=== PATIENT | female | born 1955 | race African-American/Black ===

== ENCOUNTER → 2016-05-05 | Outpatient (CLI) | payer BC | LOC: RAD 09:13 | PROVIDERS: ATTEND Physician Assistant | DX: M75.31 Calcific tendinitis of right shoulder (principal) ==

== ENCOUNTER 2016-06-21 05:24 | Day surgery (SDC) | payer BC, OTHER ==
[2016-06-16 09:35] LABS: ABSOLUTE EOSINOPHILS # (AUTO) 0.2 10^3/uL (0.0-0.6); ABSOLUTE LYMPHOCYTES (AUTO) 2.5 10^3/uL (0.5-4.7); ABSOLUTE MONOCYTES (AUTO) 0.4 10^3/uL (0.1-1.4); ABSOLUTE NEUT (AUTO) 2.7 10^3/uL (1.7-8.2); BASOPHILS % (AUTO) 0.9 % (0-2); HEMATOCRIT 37.8 % (36.0-47.0); HEMOGLOBIN 12.6 g/dL (12.0-15.5); LYMPHOCYTES % (AUTO) 43.2 % (13-45); MEAN CORPUSCULAR HGB CONC 33.3 g/dL (32.0-36.0); MEAN CORPUSCULAR VOLUME 84 fl (80-97); MONOCYTES % (AUTO) 6.2 % (3-13); RED CELL DISTRIBUTION WIDTH 13.7 % (11.5-14.0); SEGMENTED NEUTROPHILS % (AUTO) 46.7 % (42-78); WHITE BLOOD COUNT 5.7 10^3/uL (4.0-10.5)
[2016-06-16 09:59] LABS: ANION GAP 10 (5-19); BLOOD UREA NITROGEN 12 mg/dL (7-20); CALCIUM 9.9 mg/dL (8.4-10.2); CARBON DIOXIDE 27 mmol/L (22-30); CHLORIDE 103 mmol/L (98-107); CREATININE RESULT 0.87 mg/dL (0.52-1.25); GLUCOSE 262 mg/dL (75-110); POTASSIUM 4.3 mmol/L (3.6-5.0); SODIUM 140.3 mmol/L (137-145)
--- NOTE | 2016-06-16 12:36 | EKG REPORT ---
SEVERITY:- ABNORMAL ECG - SINUS RHYTHM BORDERLINE LEFT AXIS DEVIATION ANTERIOR INFARCT, AGE INDETERMINATE : Confirmed by: Issa Barrett 16-Jun-2016 12:35:45
[~2016-06-21 05:24] MED LIST: CIPROFLOXACIN 400 MG/D5W RTU 400 MG/200 ML RTUPB IV PRN; LACTATED RINGERS 1000 ML IV PRN; LIDOCAINE 0.5% INJ-PF (5 MG/ML) 50 ML SDV SUBCUT PRN
[2016-06-21] MEDS ORDERED: MICROFIBRILLAR COLLAGEN 1 GM PACK ONE (06:38)
[2016-06-21] MEDS ORDERED: LIDOCAINE 1%/EPINEPHRINE INJ 20 ML VIAL ONE (06:38)
[2016-06-21] MEDS ORDERED: MIDAZOLAM 2 MG/2 ML INJ ONE (07:05)
[2016-06-21] MEDS ORDERED: KETAMINE HCL INJ 500 MG/10 ML VIAL ONE (07:05)
[2016-06-21] MEDS ORDERED: PROPOFOL INJ 200 MG/20 ML VIAL IV ONE (07:05)
[2016-06-21] MEDS ORDERED: MEPERIDINE HCL/PF INJ 25 MG/1 ML DISP.SYRIN IV PRN (07:55)
[2016-06-21] MEDS ORDERED: MORPHINE SULFATE 10 MG/ML INJ IV PRN (07:55)
[2016-06-21] MEDS ORDERED: DIPHENHYDRAMINE HCL 50 MG/ML VIAL IV PRN (07:55)
[2016-06-21] MEDS ORDERED: OXYCODONE-ACETAMINOPHEN 5-325 MG TABLET PO PRN ×2 (07:55)
[2016-06-21] MEDS ORDERED: PROMETHAZINE HCL INJ 25 MG/1 ML VIAL IV PRN ×2 (07:55)
[2016-06-21] MEDS ORDERED: FENTANYL CITRATE INJ/PF 100 MCG/2 ML AMPUL IV PRN ×3 (07:55)
--- NOTE | 2016-06-21 08:45 | Operative Report ---
Operative Report DATE OF SURGERY: 06/21/16 PREOPERATIVE DIAGNOSIS: Abnormal mammary ducts right breast POSTOPERATIVE DIAGNOSIS: Same with possible intraductal papilloma OPERATION: 1. Focused ultrasound the right breast. 2. Ultrasound directed to the right breast biopsy including affected mammary duct SURGEON: KATIE SHAY 1ST INTERN BRAND: BUTCH LO ANESTHESIA: LMAC TISSUE REMOVED OR ALTERED: Right breast open excisional biopsy including affected duct COMPLICATIONS: None ESTIMATED BLOOD LOSS: scant INTRAOPERATIVE FINDINGS: See below PROCEDURE: Patient was seen in the preoperative holding area of ambulatory surgery with a right breast was marked. The patient taken the operating room where LMAC anesthesia was induced. Patient left the spine position right arm abducted. The right breast and axilla were prepped and draped sterile fashion. Surgical plan and surgical timeout were conducted. Focused ultrasound of the right breast revealed dilated duct possibly branching in the 10 o'clock position of the right breast. There was a suggestion of a mass effect with the duct. Palpably there was some getting of this area. I decided to make a radially oriented incision to incorporate the entire duct and its branches all the way from the periphery of the breast to the nipple proper. Skin was anesthetized with lidocaine with epinephrine a radially oriented incision was made approximately 4 cm in length from the areola border laterally to the more peripheral perimeter of the breast in the 10 o'clock position. A substantial open excisional breast biopsy was then performed using combination of sharp, scissor, knife, and electrocautery dissection incorporating the immediate subcutaneous tissue, and breast parenchyma including the affected duct as well as the mass effect in the distal portion of the duct. The level of dissection was taken all the way to the nipple. The duct did not open through the nipple but was reversed nipple dermis. This was confirmed by our inability to pass a lacrimal duct probe through the end of the duct. Once the mass was removed, labeled with suture at the proximal portion of the duct itself pathology for final analysis. Hemostasis was achieved. Wound closed at the dermal level with 3-0 Vicryl, skin level with 4-0 Monocryl applied. Gentle compression dressing applied after benzoin and Steri-Strips applied to the incision Postop procedure well. She tolerated without complications and was taken recovery in stable condition. The physician case assistant, Ms. Lo, provided assistance during this case by: Assisting , retracting tissue, instillation of local anesthesia and closure of skin incisions.
--- NOTE | 2016-06-21 08:48 | PDOC DISCHARGE SUMMARY ---
Discharge Summary (SDC) - Discharge Final Diagnosis: Right excisional breast biopsy Date of Surgery: 06/21/16 Discharge Date: 06/21/16 Condition: Stable Treatment or Instructions: [facility] [address] [place] [id number] Care Instructions Following Your Breast Biopsy Activities: Resume normal activities when you feel comfortable. It is best to remain as active as possible to speed your recovery. It is common to experience some fatigue after surgery and you may find that short naps are helpful. Avoid strenuous activity such as weight lifting, tennis, etc at your surgical site for two weeks. Perform gentle arm exercises daily and do not favor your operative arm to due increased risk of mobility issues postoperatively. No driving for 7 days after surgery[address] Do not drive if you are taking pain medication other than Tylenol or Ibuprofen. No swimming, tub baths or soaking in a hot tub for 4 weeks. There are no dietary restrictions. Do not smoke as this impairs wound healing. Surgical Site care: Remove your dressing 48 hours after surgery. Leave the steri-strips underneath in place. You may shower after removing the dressing to include washing the wound with soap and water using your hands. Do not scrub the incision. Pat the area dry with a towel. You do not need to recover the wound although some patients find that they feel more comfortable using a light dressing for a few days to absorb any minimal drainage which may occur. Many patients also find that keeping a dressing around the drain exit site is helpful to absorb any drainage which may leak around the tubing. If you use a dressing in this manner change it at least every day. Do not use heating pad or apply an ice pack to the operative site. You may apply deodorant if you are careful to avoid getting it on the wound itself. Medications: Take Motrin (ibuprofen) 600 mg to 800 mg every 8 hours around the clock. You may taper this medication as you experience less pain. Take narcotic pain control such as Tylenol #3 or Percocet one to tablets every six hours as needed for breakthrough pain. Do not take over the counter Tylenol if you are taking either Tylenol #3 or Percocet. Again, you cannot drive while taking narcotic pain medication. Resume all of your normal prescription medications after your surgery unless instructed otherwise. You may experience constipation after surgery while taking pain medications. If using a narcotic on a regular basis, take a stool softener such as Colace twice a day. It is helpful to stay hydrated by drinking lots of fluids. Walking is also helpful and is good exercise after surgery. If you need extra help, use Milk of Magnesia according to the directions on the package. Follow-up: Call our office at to make a follow-up appointment in 10-14 days. Your doctor will call to discuss the pathology report with you as soon as it is available. Prescriptions: Oxycodone HCl/Acetaminophen [Percocet 5-325 mg Tablet] 1 tab PO ASDIR PRN #15 tab PRN Reason: Discharge Activity: Activity As Tolerated Report the Following to Your Physician Immediately: Increase in Pain, Fever over 101 Degrees, Unusual Bleeding, Redness, Swelling, Warmth, Drainage-Green, Drainage-Foul Smelling
[2016-06-21] MEDS ORDERED: OXYCODONE HCL IR 5 MG TABLET ONE (10:33)
[2016-06-21 10:41] VITALS: BP 156/84
== END 2016-06-21 10:30 | disposition home or self-care (01) ==
LOC: OROUT 05:24
PROVIDERS: ATTEND Surgery
PROC: 0HBT0ZX Excision of Right Breast, Open Approach, Diagnostic (ICD-10-PCS; principal; 2016-06-21 07:30)
DX: D24.1 Benign neoplasm of right breast (principal); N60.41 Mammary duct ectasia of right breast; N61.0 Mastitis without abscess; N60.11 Diffuse cystic mastopathy of right breast; N64.52 Nipple discharge; D36.9 Benign neoplasm, unspecified site; I10 Essential (primary) hypertension; K76.0 Fatty (change of) liver, not elsewhere classified; E05.00 Thyrotoxicosis with diffuse goiter without thyrotoxic crisis or storm; E78.00 Pure hypercholesterolemia, unspecified; E11.9 Type 2 diabetes mellitus without complications; I38 Endocarditis, valve unspecified; Z86.73 Personal history of transient ischemic attack (TIA), and cerebral infarction without residual deficits; Z79.84 Long term (current) use of oral hypoglycemic drugs; Z79.899 Other long term (current) drug therapy; Z79.82 Long term (current) use of aspirin
CPT/HCPCS: 93005; 36415 ×2; 82962; 84132; 85025; 80048; 88342 ×2; 88341 ×2; 88307 ×2; 93010; 19101; J2250; J3490 ×2; J2704; J0744; 400